=== PATIENT | female | born 1995 | race Caucasian/White ===

== ENCOUNTER 2024-03-21 13:17 | Outpatient (AMB) | payer OTHER, SELFPAY ==
[2024-03-21 13:36] VITALS: BP 110/62; BMI 29.3
--- NOTE | 2024-03-21 13:36 | A.OFFVIS_ITS ---
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 She is here for history of irregular bleeding she cites however that her periods have been regular for the last year. She had a history of very heavy periods that were little bit more regular in the past so in 2017 she had Mirena IUD or a Liletta IUD placed to help manage her bleeding last apr she had it removed so that she could attempt to get her periods came back right away but they have gotten heavier and in fact last month her period lasted 10 hold days that is what made her call for the appointment this most recent period However started on , and is just a brown right now as it leaves on Thursday and feels like a normal period to her. Still she declines exam because she has her period. She says she does get regular periods every month though years ago she would be less regular. She says her periods returned to normal white after removing Mirena/Liletta. She still would like to get but she wants to know why she gets says heavy periods she said she did lose some weight in the last year she was 160 starting out and went down to about 140 but she has now gained to 150, & she kind of feels better where she is now. 140 for her felt too skinny. She said she last had a primary care provider in August but she has lost that 1 because of the change of insurance and needs a new 1 she said she was checked and did not have diabetes or anything it does run in her family. She says she also was on control pills to do with heavy periods from the age of 11 to the age of 16. She has a nap which she is using to try to help her keep track of her menses her menstrual cycle and days of fertility. Of interest she says she is having sex very frequently but she does not marked down all the time she also has a calendar home where she keeps track of things as well. Also of interest she says she is aware of signs of fertility including increased clear mucus but it does not correspond to when the madhu on her phone tells her should be the peak days of fertility. She feels her symptoms come after that. Additionally she says her partner has 5 children age range 6- 20. PFSH Medical History (Updated 03/21/24 @ 15:37 by Margo Lemons CNM) Anemia Social History (Updated 03/21/24 @ 13:39 by Alec Dawson CMA) Alcohol intake: current Alcohol intake frequency: holidays/special occasions only Patient Tobacco Use Status: Never used Tobacco Female Reproductive History Menstrual Age of Menarche: 10 Duration of menses: other Date of last menstrual period: 03/17/24 control method: none Total pregnancies: 0 History of abnormal pap smear: No (2021,neg.per patient) Physical Exam Vital Signs: Last Vital Signs BP 110/62 03/21/24 13:36 BMI result Body Mass Index 29.3 Results Reviewed Results Reviewed: Records of IUD removal from [facility] April 2023, of note the IUD was removed under ultrasound guidance with alligator forceps as this strings were not visible nor able to be brought into visibility with Cytobrush. Additionally Pap smear was done 12/23/2022 and was negative with negative HPV and negative testing for STIs as well occurred then and in April 2023 Assessment & Plan Assessment & Plan (1) Anemia: Code(s): D64.9 - Anemia, unspecified Category: Medical (2) Menorrhagia with regular cycle: Code(s): N92.0 - Excessive and frequent menstruation with regular cycle Category: Medical (3) Patient desires : Code(s): Z31.9 - Encounter for procreative management, unspecified Category: Medical Plan I reviewed the common reasons for menorrhagia. Reviewed that the usual treatments for them involve all methods of control in control pills an IUD with progestin as well as sometimes Depo-Provera and Nexplanon though the results can be less predictable with Nexplanon. Patient is interested to know why. I am ordering pelvic ultrasound but discus sed that no particular cause may be found , and that some people's periods are just heavier than others.. Discussed that since she wants to become none of those methods would be helpful for her although she might want to consider going on control pills for a short while and then attempting to get then after going off of them. I also reviewed with her her signs and symptoms of fertility and how she is tracking her cycle and also she is keeping track occasionally of when she has sex discussed that aiming for peak fertile times by symptom maybe also just as important as it seems not to be a green with her madhu for some reason. Also on prescribing her vitamins with folic acid for her to start reviewed that these do not help her get there simply help her have adequate vitamins in preparation for getting . 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 I am ordering a pelvic ultrasound and also some lab work which I recommend she do fasting and have her return after the ultrasound and do a pelvic exam then. Orders: Orders Hepatitis B Surface Antigen Today D64.9 - Anemia, unspecified, N92.0 - Excessive and frequent menstruation with regular cycle Hepatitis C Antibody Today D64.9 - Anemia, unspecified, N92.0 - Excessive and frequent menstruation with regular cycle Complete Blood Count no Diff Today D64.9 - Anemia, unspecified, N92.0 - Excessive and frequent menstruation with regular cycle Glucose Random Today D64.9 - Anemia, unspecified, N92.0 - Excessive and frequent menstruation with regular cycle US pelvic and transvaginal Today D64.9 - Anemia, unspecified, N92.0 - Excessive and frequent menstruation with regular cycle Thyroid Stimulating Hormone Today D64.9 - Anemia, unspecified, N92.0 - Excessive and frequent menstruation with regular cycle HIV Ab/Ag Today D64.9 - Anemia, unspecified, N92.0 - Excessive and frequent menstruation with regular cycle Syphilis Screen Today D64.9 - Anemia, unspecified, N92.0 - Excessive and frequent menstruation with regular cycle Medications: New PNV,calcium 12-cqpn-ifakq acid 27 mg iron- 1 mg ( Vitamins Plus Low Iron) 1 tab PO DAILY 90 tabs 4RF Coding Level of Care Code New Pt Level 3 (45124) Diagnoses Anemia D64.9 Menorrhagia with regular cycle N92.0 Patient desires Z31.9
== END 2024-03-21 15:35 | disposition home or self-care (01) ==
LOC: HO.HWSM 13:17
PROVIDERS: Visit Provider Advanced Practice Midwife
DX: D64.9 Anemia, unspecified (principal); N92.0 Excessive and frequent menstruation with regular cycle; Z31.9 Encounter for procreative management, unspecified
CPT/HCPCS: 99203

== ENCOUNTER → 2024-03-21 13:17 | Outpatient (BNVA) | payer OTHER, SELFPAY | PROVIDERS: Visit Provider Advanced Practice Midwife | DX: N92.0 Excessive and frequent menstruation with regular cycle (principal); D64.9 Anemia, unspecified; Z31.9 Encounter for procreative management, unspecified | CPT/HCPCS: 99202 ==

== ENCOUNTER 2024-03-28 11:01 | Outpatient (REF) | payer OTHER, SELFPAY ==
[2024-03-28 13:26] LABS: Hematocrit 38.7 % (37.0-47.0); Hemoglobin 12.3 g/dl (12.0-16.0); Mean Corpuscular HGB Conc 31.8 g/dl (31.0-35.0); Mean Corpuscular Hemoglobin 28.6 pg (27.0-33.0); Platelet Count 421 X10*3/uL (160-400); Red Cell Distribution Width 12.4 % (11.0-16.0); White Blood Count 7.3 X10*3/uL (4.8-10.8)
[2024-03-28 13:51] LABS: Glucose Random 91 mg/dL (60-115)
[2024-03-28 14:11] LABS: Syphilis Screen Nonreactive (Nonreactive); Thyroid Stimulating Hormone 0.89 uIU/mL (0.32-4.0)
[2024-03-29 08:04] LABS: HBsAGNum1 0.37 S/CO (0.00-0.99); HIV AB/AG Nonreactive (Nonreactive); HIV Num 1 0.05 S/CO (0.00-0.99); Hepatitis B Surface Antigen Negative (Negative); ~HepC Num1 0.09 S/CO (0.00-0.79); ~Hepatitis C Antibody Nonreactive (Nonreactive)
== END 2024-03-28 11:02 | disposition home or self-care (01) ==
LOC: HO.US 11:01
PROVIDERS: Visit Provider Advanced Practice Midwife
DX: D64.9 Anemia, unspecified (principal); N92.0 Excessive and frequent menstruation with regular cycle
CPT/HCPCS: 36415; 76830; 76856; 82947; 84443; 85027; 86780; 86803; 87340; 87389

== ENCOUNTER 2024-05-10 11:08 | Outpatient (REF) | payer OTHER, SELFPAY ==
--- OUTSIDE RECORDS SUMMARY | 2024-05-10 13:04 | XMS_ITS | Clinical Summary ---
Author Organization [facility] ity Address [address] [place] [address] Care Team Providers Care Sheet Metal Apprentice Name Role Phone Luca Aly MD Primary Care Provider [phone] Social History Tobacco Use Types Packs/Day Years [...] age to complete this topic Care Teams Sheet Metal Apprentice Relationship Specialty Start Date End Date Luca Aly MD PCP - General Internal Medicine 03/10/18
[2024-05-11 06:06] LABS: CT PCR NOT DETECTED (Not Detect.); NG PCR NOT DETECTED (Not Detect.)
[2024-05-11 11:12] LABS: Bacterial Vaginosis PCR POSITIVE (Negative); Candida Group PCR NOT DETECTED (Not Detect); Candida glab krusei PCR NOT DETECTED (Not Detect); Trichomonas vaginalis PCR NOT DETECTED (Not Detect)
[2024-05-20 15:07] LABS: HPV Genotype 16 Negative (Negative); HPV Genotype 18 Negative (Negative); HPV High Risk Negative (Negative)
== END 2024-05-10 11:09 | disposition home or self-care (01) ==
LOC: HO.LNP 11:08
PROVIDERS: Visit Provider Advanced Practice Midwife
DX: Z01.419 Encounter for gynecological examination (general) (routine) without abnormal findings (principal); N89.8 Other specified noninflammatory disorders of vagina; Z20.2 Contact with and (suspected) exposure to infections with a predominantly sexual mode of transmission
CPT/HCPCS: 81515; 87491; 87591; 87626; 88175; 99395; 99459

== ENCOUNTER 2024-05-10 11:08 | Outpatient (AMB) | payer OTHER, SELFPAY ==
--- NOTE | 2024-05-10 11:21 | MHC.OFFVIS ---
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 appointment was made in an unclear way. Her periods are the same they are regular they are heavy she is happy to know she is not anemic she still is interested in trying to get her periods are coming regular. She is happy to know that all the testingof bloodwork stis,and cbc and glucose, and tsh, is good. [facility] Medical History (Updated 05/10/24 @ 11:43 by Margo Lemons CNM) Anemia Social History Alcohol intake: current Alcohol intake frequency: holidays/special occasions only Patient Tobacco Use Status: Never used Tobacco Female Reproductive History Menstrual Age of Menarche: 10 Duration of menses: 3-5 days Date of last menstrual period: 04/17/24 control method: none Total pregnancies: 0 Physical Exam Vital Signs: Last Vital Signs BP 112/62 05/10/24 11:23 BMI result Body Mass Index 28.9 Const General: healthy appearing, comfortable, no acute distress, well developed and alert Nutritional Appearance: average body habitus Orientation/consciousness: patient oriented x3 Limitations: no limitations HEENT Head: Yes normocephalic Neck Neck: Yes normal visual inspection Chest Chest palpation & inspection: normal inspection of the chest Breast/axilla inspection: normal inspection of the breasts and normal inspection of the axillae Breast/axilla palpation: normal palpation of the breasts and normal palpation of the axillae Resp Effort & Inspection: normal respiratory effort GI Inspection: Yes normal to inspection, No Abdominal wall edema and No distended Palpation (GI): Soft to palpation and nontender Other: External speculum exam within normal limits vagina pink and moist there is a creamy white discharge cervix nulliparous pink smooth healthy appearing deep in pelvis difficult to feel uterus is anteverted mobile nontender adnexa nontender nonenlarged and very very good tone with Kegel. General: Yes bladder normal to palpation External Female Exam: normal external appearance and normal appearance of the urethra Speculum Exam - Vagina: normal appearance of the vagina, normal palpation and normal vaginal discharge Speculum Exam - Cervix: normal appearance of the cervix, normal palpation and nontender Bimanual exam- vagina & uterus: normal bimanual exam, normal palpation, uterine size normal, bladder normal to palpation, consistency normal, normal palpation, uterine mobility normal, uterine shape normal, No Cervical tenderness present, non-tender and no cervical motion tenderness Bimanual Exam- Adnexa, other: normal adnexae, no masses, normal and No adnexal tenderness Neuro General: patient oriented x3 Results Reviewed Results Reviewed: Patient: Abi Roca MR#: [id number] : 1995 Acct:[id number] Age/Sex: 29 / F ADM Date: 03/28/24 Loc: HO.US Attending Dr: Margo Lemons CNM Ordering Physician: Margo Lemons CNM Date of Service: 03/28/24 Procedure(s): US pelvic and transvaginal Accession Number(s): [id number] cc: Margo Lemons CNM~ EXAMINATION: US PELVIS CLINICAL INFORMATION: Anemia, last menstrual period 03/19/2024. COMPARISON: None available. TECHNIQUE: Ultrasound of the pelvis is performed using both transabdominal and transvaginal transducers along with Doppler. Transvaginal imaging is performed due to inadequate visualization transabdominally. FINDINGS: The anteverted uterus measures 8.3 x 3.4 x 3.7 cm. Right ovary measures 2.2 x 2.0 x 2.2 cm, volume 7.4 mL. Left ovary measures 3.0 x 2.1 x 2.0 cm, volume 6.6 mL. Right ovarian 1.7 x 1.3 x 1.4 cm cyst appears simple, likely physiologic. Endometrial thickness is 9 mm. Small amount of fluid within the endometrial cavity at the level of the lower uterine segment and within the cervix. US/US pelvic and transvaginal IMPRESSION: Endometrial thickness is 9 mm. Small amount of fluid within the endometrial cavity at the level of the lower uterine segment and within the cervix. Electronically signed by: Khushi Diego MD 05/04/2024 05:36 AM EST Dictated By: Khushi Diego MD Signed By: <Electronically signed by Khushi Diego MD in OV> 05/04/24 0536 DD/ 1102 TD/TT: 03/28/24 1130 Meat Slicer: PEC : [id number] DUSTY: 03/28/24 STATUS: COMP REQ : [id number] RECD: 03/28/[address]: Margo Lemons CNM COMP: 03/29/2445 ENTERED: 03/28/24 [facility] DR: ORDERED: Anti-HCV, HIV Ab/Ag, HBsAG Test Result Flag Reference Anti-HCV Nonreactive Nonreactive Antibodies to HCV not detected; does not exclude early acute HCV infection. HIV AB/AG Nonreactive Nonreactive HIV-1 p24 Ag and/or HIV-1/HIV-2 Ab not detected. A test result that is nonreactive does not exclude the possibility of exposure to or infection with HIV-1 and/or HIV-2. Nonreactive results in this assay for individuals with prior exposure to HIV-1 and/or HIV-2 may be due to antigen and antibody levels that are below the limit of detection of this assay. The [employer] HIV Ag/Ab Combo assay result and supplemental assay results should be interpreted in conjunction with the patient's clinical presentation, history and other laboratory results. If the results are inconsistent with clinical evidence, additional testing is suggested to confirm the result. HBsAG Negative Negative Re03/28/24 Status: DEP REF Location: [facility] Disch: SPEC : [id number] DUSTY: 03/28/24 STATUS: COMP REQ : [id number] RECD: 03/28/[address]: Margo Lemons CNM COMP: 03/28/24 ENTERED: 03/28/[address]: ORDERED: Glu Random, TSH Test Result Flag Reference Glucose, Random 91 60-115 mg/dL TSH 3rd Gen. 0.89 0.32-4.0 uIU/mL kevin: Abi Roca Age/Sex: 29/F : 1995 Unit#: [id number] Attend Dr: Margo Lemons CNM Re03/28/24 Status: DEP REF Location: [facility] Disch: SPEC : [id number] DUSTY: 03/28/24 STATUS: COMP REQ : [id number] RECD: 03/28/[address]: Margo Lemons CNM COMP: 03/28/24 ENTERED: 03/28/24 [facility] DR: ORDERED: CBC No Diff Test Result Flag Reference WBC 7.3 4.8-10.8 X10*3/uL RBC 4.30 4.20-5.50 X10*6/uL HGB 12.3 12.0-16.0 g/dl HCT 38.7 37.0-47.0 % MCV 90.0 80.0-98.0 fL MCH 28.6 27.0-33.0 pg MCHC 31.8 31.0-35.0 g/dl RDW 12.4 11.0-16.0 % PLT 421 H 160-400 X10*3/uL MPV 10.0 9.4-12.3 fL NRBC Pct Auto 0.0 0.0-0.2 /100WBC NRBC Abs Auto 0.000 0.0-0.012 X10*3/uL Assessment & Plan Assessment & Plan (1) Menorrhagia with regular cycle: Code(s): N92.0 - Excessive and frequent menstruation with regular cycle Category: Medical (2) Patient desires : Code(s): Z31.9 - Encounter for procreative management, unspecified Category: Medical (3) Well woman exam with routine gynecological exam: Code(s): Z01.419 - Encounter for gynecological examination (general) (routine) without abnormal findings Category: Medical (4) Cervical cancer screening: Code(s): Z12.4 - Encounter for screening for malignant neoplasm of cervix Category: Medical (5) Encounter for screening examination for sexually transmitted disease: Code(s): Z11.3 - Encounter for screening for infections with a predominantly sexual mode of transmission Category: Medical (6) Anemia: Comment: currently normal H&H Code(s): D64.9 - Anemia, unspecified Category: Medical Plan Patient is here today to review her lab work and her ultrasound and also she came expecting her exam as previously discussed. appointment was made in an unclear way. Her periods are the same they are regular they are heavy she is happy to know she is not anemic she still is interested in trying to get her periods are coming regular. She is happy to know that all the testingof bloodwork stis,and cbc and glucose, and tsh, is good. I did her exam today and Pap smear and cervical/vaginal testing for STIs there is a creamy whitish discharge it is not bothersome to her we will await the testing results to see if there is anything to treat. Discussed her heavy menses and since she is trying to get it really isn't anything that she would want to do differently than what she is doing already. I did reminder to start the multivitamins with folic acid since she is trying to get also reviewed again that we do not have a birthing center here in [place] so for 1st I would recommend that she start care where she would intend to be delivered with the same team. 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 Patient portal info RTC for annual in 1 year unless she gets and goes elsewhere. Orders: Orders Pap Smear Today Z01.419 - Encounter for gynecological examination (general) (routine) without abnormal findings CT NG by PCR Today N89.8 - Other specified noninflammatory disorders of vagina, Z20.2 - Contact with and (suspected) exposure to infections with a predominantly sexual mode of transmission Bacterial Vaginosis Panel Today N89.8 - Other specified noninflammatory disorders of vagina Coding Level of Care Code Est Pt Prev Care 18-39y([id number]) Diagnoses Menorrhagia with regular cycle N92.0 Patient desires Z31.9 Well woman exam with routine gynecological exam Z01.419 Cervical cancer screening Z12.4 Encounter for screening examination for sexually transmitted disease Z11.3 Anemia D64.9 Time Spent (min) 35 Comment Review of ultrasound and labs planning,testing
[2024-05-10 11:23] VITALS: BP 112/62; BMI 28.9
--- OUTSIDE RECORDS SUMMARY | 2024-05-10 12:24 | XMS_ITS | Clinical Summary ---
Author Organization [facility] ity Address [address] [place] [address] Care Team Providers Care Woodworking Craftsman Name Role Phone Luca Aly MD Primary Care Provider [phone] Social History Tobacco Use Types Packs/Day Years Used Date Smoking Tobacco: Never Assessed Sex and Gender Information Value Date Recorded Sex Assigned at Not on file Gender Identity Not on file Sexual Orientation Not on file Plan of Treatment Health Maintenance Due Date Last Done Comments DTaP,Tdap,and Td Vaccines (1 - Tdap) 01/14/2012 Hepatitis B Vaccines (1 of 3 - 19+ 3-dose series) 01/14/2012 Cervical Cancer Screening: P ap Smear 2014 Depression Screening 03/16/2022 HIV Screening 03/16/2022 Hepatitis C Screening 03/16/2022 Social Influencers of Health Screening 03/16/2022 COVID-19 Vaccine ( - 2023-2 5 season) 2023 Influenza Vaccine (#1) 2023 HIB Vaccines Aged Out No longer eligi ble based on patient's age to complete this topic HPV Vaccines Aged Out No longer eligi ble based on patient's age to complete this topic Hepatitis A Vaccines Aged Out No long er eligible based on patient's age to complete this topic IPV Vaccines Aged Out No longer eligi ble based on patient's age to complete this topic MMR Vaccines Aged Out No longer eligi ble based on patient's age to complete this topic Meningococcal ACWY Vaccine Aged Out N o longer eligible based on patient's age to complete this topic Pneumococcal Vaccine: Pediat rics (0 to 5 Years) and At-Risk Patients (6 to 64 Years) Aged Out No longer eligible b ased on patient's age to complete this topic RSV Immunization Patients Un rafal 20 months Aged Out No longer eligible b ased on patient's age to complete this topic Varicella Vaccines Aged Out No longer eligible based on patient's age to complete this topic Care Teams Woodworking Craftsman Relationship Specialty Start Date End Date Luca Aly MD PCP - General Internal Medicine 03/10/18
== END 2024-05-10 12:15 | disposition home or self-care (01) ==
PROVIDERS: Visit Provider Advanced Practice Midwife
DX: Z01.419 Encounter for gynecological examination (general) (routine) without abnormal findings (principal); N92.0 Excessive and frequent menstruation with regular cycle; D64.9 Anemia, unspecified
CPT/HCPCS: 99395; 99459

== ENCOUNTER 2024-05-10 11:56 | Outpatient (REF) | payer OTHER, SELFPAY | END 2024-05-10 11:57 | disposition home or self-care (01) | LOC: HO.LAB 11:56 | PROVIDERS: Visit Provider Advanced Practice Midwife | DX: Z13.89 Encounter for screening for other disorder (principal) ==